=== PATIENT | female | born 1960 | race Caucasian/White ===

== ENCOUNTER 2023-07-16 08:05 | Outpatient (AMB) | payer OTHER, SELFPAY ==
--- NOTE | 2023-07-16 08:08 | AM.OFFWIN_ITS ---
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 She has 2 complaints. Patient is reporting symptoms of ear congestion, block nose and headache symptoms for the past 4 days. She tested negative for COVID. No family member is sick and no recent travel. Patient gives history of anxiety and symptoms have gotten worse due to this current illness. She is requesting Ativan. [facility] Social History Patient Tobacco Use Status: Never used Tobacco Physical Exam Vital Signs: Last Vital Signs Temp 97.9 F 07/16/23 08:14 Pulse 81 07/16/23 08:14 BP 142/78 H 07/16/23 08:14 Pulse Ox 98 07/16/23 08:14 BMI result Body Mass Index 25.4 Const General: cooperative and healthy appearing Nutritional Appearance: well nourished Orientation/consciousness: patient oriented x3 Limitations: no limitations HEENT Head: Yes normal to inspection Eyes General: appearance normal, both eyes and all related structures Neck Neck: Yes normal visual inspection Chest Chest palpation & inspection: normal palpation of entire chest wall Resp Effort & Inspection: normal respiratory effort Neuro General: patient oriented x3 Assessment & Plan Assessment & Plan (1) Generalized anxiety disorder: Code(s): F41.1 - Generalized anxiety disorder Plan: Declined to prescribe Ativan. Trazodone has been sent in for 7 days. Patient needs to have a meeting with her primary care provider to discuss this matter further. (2) Upper respiratory tract infection: Code(s): J06.9 - Acute upper respiratory infection, unspecified Plan: Antibiotics ordered. Increase fluid intake. Tylenol for aches and pains. If symptoms worsen, follow-up here for a recheck. Coding Level of Care Code New Pt Level 4 (45868) Diagnoses Generalized anxiety disorder F41.1 Upper respiratory tract infection J06.9
[2023-07-16 08:14] VITALS: BP 142/78; PULSE 81; TEMP 36.6; O2SAT 98; BMI 25.4
== END 2023-07-16 08:51 | disposition home or self-care (01) ==
PROVIDERS: Visit Provider Internal Medicine
DX: F41.1 Generalized anxiety disorder (principal); J06.9 Acute upper respiratory infection, unspecified
CPT/HCPCS: 99204